=== PATIENT | male | born 1955 | race African-American/Black ===

== ENCOUNTER → 2022-10-15 09:43 | Outpatient (BNVA) | payer MEDICARE, SELFPAY | PROVIDERS: PCP Hospitalist; Visit Provider Urology | DX: N52.01 Erectile dysfunction due to arterial insufficiency (principal) | CPT/HCPCS: 99202 ==

== ENCOUNTER 2023-09-01 09:38 | Outpatient (AMB) | payer MEDICARE, SELFPAY ==
--- NOTE | 2023-09-01 09:38 | MHC.OFFVIS ---
Intake Intake Visit Reasons: medication follow up Intake Note: Guille is a 67 year old male who presents today for a Medication followup Allergies No Known Allergies Allergy (Verified 10/15/22 09:59) HPI HPI Comments History of Present Illness Details Guille is a pleasant male. He is a patient of Dr. Alford. He is seen for the following urologic conditions - erectile dysfunction Telemedicine Evaluation 15 min Consultation [employer] Has been on sildenafil on demand Erectile Dysfunction He presents today for - follow-up evaluation of erectile dysfunction Symptoms have been present for/since - progressive and ongoing Current treatment includes - none Treatment side effects include - none prior Prior therapies include - none At the time of initial evaluation he experiences - partial and adequate for vaginal penetration - undergo slow detumescence after penetration Nocturnal erections are occasional Associated Medical Conditions include hypertension, dyslipidemia, cardiovascular disease Atherosclerosis Cardiovascular Disease Risk not completed but moderate has prior cardiac stent from 2007 - has adequate performance status with ability to climb 2-3 flights of stairs and walk 200 yd Medications include(s) beta-maulik Recent labs include not complete Overall he is interested in oral medication Therapeutic plan includes - continue use of oral PDE5 [facility] Medical History Hyperlipidemia Erectile dysfunction Low back pain Microscopic hematuria Review of Systems Const All systems reviewed & are unremarkable except as noted in HPI and below Reports no additional complaints Resp Reports no additional complaints GI Reports no additional complaints Reports as per HPI Musc Reports no additional complaints Physical Exam Telemedicine evaluation Appropriate responses Regular breathing rate and rhythm HEENT Head: Yes normal to inspection Ears: hearing grossly normal bilaterally Eyes General: appearance normal, both eyes and all related structures Neck Neck: Yes normal visual inspection Chest Chest palpation & inspection: normal inspection of the chest Resp Effort & Inspection: normal respiratory effort and able to speak in complete sentences Assessment & Plan Assessment & Plan (1) Erectile dysfunction due to arterial insufficiency: Code(s): N52.01 - Erectile dysfunction due to arterial insufficiency Plan 12m f/u Patient Instructions: Imaging studies, laboratory and physical exam results were discussed and reviewed in detail. No major barriers to patient understanding were identified. An opportunity to ask questions regarding the treatment plan was provided. All questions were answered. The patient expressed understanding and agreement with the above treatment plan. The patient is aware they should contact our office by phone for worsening of their current condition or the appearance of new urologic symptoms. Compliance is encouraged with any medications and followup testing that is ordered. It is a privilege to participate in the urologic care of your patient. If you have any questions or concerns regarding treatment for the above conditions, or other urologic issues, please do not hesitate to contact me. The office telephone contact is [phone]. This note is constructed using voice recognition software. While every effort has been made to ensure accuracy fiber optics engineer errors may have been included. Yours sincerely, Dr Hemal Mckeon MD, DAVID [facility] - Urology Providers of Expert, Compassionate Care for the Genitourinary System Telehealth Telehealth Location of provider rendering services: practice address Location of patient: address on file Patient Identification confirmed using: Name, : Yes Telehealth method: video Patient verbally consented to treatment: Yes Patient verbally consented to billing insurance company: Yes Patient informed of any privacy concerns related to visit: Yes Coding Level of Care Code Tele Est Pt Level 3 (35908) Diagnoses Erectile dysfunction due to arterial insufficiency N52.01
== END 2023-09-01 10:17 | disposition home or self-care (01) ==
LOC: HO.HUSH 09:38
PROVIDERS: PCP Hospitalist; Visit Provider Urology
DX: N52.01 Erectile dysfunction due to arterial insufficiency (principal)
CPT/HCPCS: 99213

== ENCOUNTER → 2023-09-01 09:38 | Outpatient (BNVA) | payer MEDICARE, SELFPAY | PROVIDERS: PCP Hospitalist; Visit Provider Urology ==

== ENCOUNTER 2024-10-31 08:43 | Outpatient (AMB) | payer MEDICARE, SELFPAY ==
--- NOTE | 2024-10-31 08:48 | A.OFFVIS_ITS ---
Intake Visit Reasons: 1y follow up(Erectile Dys) Intake Note: New patient is present for 1Y F/U Erectile Dysfunction URO MEDS: SILDENAFIL ALLERGIES:NONE Blood Thinner: Warfarin Plate Roller Required: No Allergies No Known Allergies Allergy (Verified 10/31/24 08:49) HPI Comments Details: Guille is a pleasant male. He is a patient of Dr. Alford. He is seen for the following urologic conditions - erectile dysfunction Has been on sildenafil on demand Has been effective when required PCP tracts PSA Erectile Dysfunction He presents today for - follow-up evaluation of erectile dysfunction Symptoms have been present for/since - progressive and ongoing Current treatment includes - none Treatment side effects include - none prior Prior therapies include - none At the time of initial evaluation he experiences - partial and adequate for vaginal penetration - undergo slow detumescence after penetration Nocturnal erections are occasional Associated Medical Conditions include hypertension, dyslipidemia, cardiovascular disease Atherosclerosis Cardiovascular Disease Risk not completed but moderate has prior cardiac stent from 2007 - has adequate performance status with ability to climb 2-3 flights of stairs and walk 200 yd Medications include(s) beta-maulik Recent labs include not complete Overall he is interested in oral medication Therapeutic plan includes - continue use of oral PDE5 PFS Medical History Hyperlipidemia Erectile dysfunction Low back pain Microscopic hematuria Review of Systems Const Denies chills and Denies fever(s) Card Reports no additional complaints and Denies syncope Resp Denies cough GI Denies abdominal pain and Denies heartburn Reports as per HPI and Denies change in libido Neuro Denies syncope Psych Denies change in libido Endo Denies change in libido Physical Exam Const General: cooperative, healthy appearing, comfortable and no acute distress Orientation/consciousness: patient oriented x3 HEENT Face and sinus: Yes normal facial exam Mouth: moist mucous membranes Neck Neck: Yes normal visual inspection, Yes full ROM and Yes trachea midline Chest Chest palpation & inspection: normal inspection of the chest Resp Effort & Inspection: normal respiratory effort, able to speak in complete sentences and no respiratory distress GI Inspection: Yes normal to inspection Back/Spine/Pelvis Cervical Spine: normal cervical lordosis Thoracic/Lumbar Spine: thoracic and lumbar spine normal to inspection Skin General skin exam: no rashes or lesions noted Neuro General: patient oriented x3, gait normal, tone normal and moves all extremities Extrem General: Yes normal to inspection and Yes capillary refill normal Assessment & Plan Assessment & Plan (1) Erectile dysfunction due to arterial insufficiency: Code(s): N52.01 - Erectile dysfunction due to arterial insufficiency Category: Medical Plan Twelve month follow-up office Patient Instructions: Imaging studies, laboratory and physical exam results were discussed and reviewed in detail. No major barriers to patient understanding were identified. An opportunity to ask questions regarding the treatment plan was provided. All q uestions were answered. The patient expressed understanding and agreement with the above treatment plan. The patient is aware they should contact our office by phone for worsening of their current condition or the appearance of new urologic symptoms. Compliance is encouraged with any medications and followup testing that is ordered. It is a privilege to participate in the urologic care of your patient. If you have any questions or concerns regarding treatment for the above conditions, or other urologic issues, please do not hesitate to contact me. The office telephone contact is [phone]. This note is constructed using voice recognition software. While every effort has been made to ensure accuracy laborer tin can errors may have been included. Yours sincerely, Dr Hemal Mckeon MD, DAVID [facility] - Urology Providers of Expert, Compassionate Care for the Genitourinary System Coding Level of Care Code Est Pt Level 4 (78948) Diagnoses Erectile dysfunction due to arterial insufficiency N52.01
== END 2024-10-31 09:22 | disposition home or self-care (01) ==
PROVIDERS: PCP Hospitalist; Visit Provider Urology
DX: N52.01 Erectile dysfunction due to arterial insufficiency (principal)
CPT/HCPCS: 99214

== ENCOUNTER → 2024-10-31 08:43 | Outpatient (BNVA) | payer MEDICARE, SELFPAY | PROVIDERS: PCP Hospitalist; Visit Provider Urology | DX: N52.01 Erectile dysfunction due to arterial insufficiency (principal) | CPT/HCPCS: 99212 ==

== ENCOUNTER 2025-02-07 12:57 | Outpatient (AMB) | payer MEDICARE, SELFPAY ==
--- NOTE | 2025-02-07 13:21 | A.OFFVIS_ITS ---
Intake Visit Reasons: elevated psa Intake Note: Patient is present for ELEVATED PSA Urology Medication:SILDENAFIL Antibiotic Allergy:NONE Blood Thinner:WARFARIN Commercial Portfolio Manager Required: No Allergies No Known Allergies Allergy (Verified 02/07/25 13:22) HPI Comments Details: Guille is a pleasant male. He is a patient of Dr. Alford. He is seen for the following urologic conditions - erectile dysfunction Elevated PSA Follow-up after PCP tract PSA at 8.3 ALLIE in office 2+ Recommend trial finasteride and through repeat PSA in 4 months If PSA follows to normalize would recommend biopsy Erectile Dysfunction He presents today for - follow-up evaluation of erectile dysfunction Symptoms have been present for/since - progressive and ongoing Current treatment includes - none Treatment side effects include - none prior Prior therapies include - none At the time of initial evaluation he experiences - partial and adequate for vaginal penetration - undergo slow detumescence after penetration Nocturnal erections are occasional Associated Medical Conditions include hypertension, dyslipidemia, cardi ovascular disease Atherosclerosis Cardiovascular Disease Risk not completed but moderate has prior cardiac stent from 2007 - has adequate performance status with ability to climb 2-3 flights of stairs and walk 200 yd Medications include(s) beta-maulik Recent labs include not complete Overall he is interested in oral medication Therapeutic plan includes - continue use of oral PDE5 PFS Medical History Hyperlipidemia Erectile dysfunction Low back pain Microscopic hematuria Review of Systems Const Denies chills and Denies fever(s) Card Reports no additional complaints and Denies syncope Resp Denies cough GI Denies abdominal pain and Denies heartburn Reports as per HPI and Denies change in libido Neuro Denies syncope Psych Denies change in libido Endo Denies change in libido Physical Exam Const General: cooperative, healthy appearing, comfortable and no acute distress Orientation/consciousness: patient oriented x3 HEENT Face and sinus: Yes normal facial exam Mouth: moist mucous membranes Neck Neck: Yes normal visual inspection, Yes full ROM and Yes trachea midline Chest Chest palpation & inspection: normal inspection of the chest Resp Effort & Inspection: normal respiratory effort, able to speak in complete sentences and no respiratory distress GI Inspection: Yes normal to inspection Rectal Exam - Male: Yes normal sphincter tone and Yes prostate normal Male General Exam: Yes normal external exam Penis: normal penis and circumcised Meatus: meatus normal Scrotum: scrotum normal Testes: Testes normal Back/Spine/Pelvis Cervical Spine: normal cervical lordosis Thoracic/Lumbar Spine: thoracic and lumbar spine normal to inspection Skin General skin exam: no rashes or lesions noted Neuro General: patient oriented x3, gait normal, tone normal and moves all extremities Extrem General: Yes normal to inspection and Yes capillary refill normal Assessment & Plan Assessment & Plan (1) Elevated PSA: Code(s): R97.20 - Elevated prostate specific antigen [PSA] Category: Medical (2) Bladder outlet obstruction: Code(s): N32.0 - Bladder-neck obstruction Category: Medical Plan Start finasteride Follow-up PSA 4 month Orders: Orders PSA,Total (Free>4and<10) 4 Months N32.0 - Bladder-neck obstruction Medications: New finasteride 5 mg PO DAILY 90 days 90 tabs 1RF N32.0 - Bladder-neck obstruction Patient Instructions: This note is constructed using voice recognition software. While every effort has been made to ensure accuracy top bottom attaching machine operator errors may have been included. Imaging studies, laboratory and physical exam results were discussed and reviewed in detail. No major barriers to patient understanding were identified. An opportunity to ask questions regarding the treatment plan was provided. All questions were answered. The patient expressed understanding and agreement with the above treatment plan. The patient is aware they should contact our office by phone for worsening of their current condition or the appearance of new urologic symptoms. Compliance is encouraged with any medications and followup testing that is ordered. It is a privilege to participate in the urologic care of your patient. If you have any questions or concerns regarding treatment for the above conditions, or other urologic issues, please do not hesitate to contact me. The office telephone contact is [phone]. Sincerely, Dr Hemal Mckeon MD, DAVID [facility] - Urology Compassionate Specialist Care for the Genitourinary System Coding Level of Care Code Est Pt Level 4 (99286) Diagnoses Elevated PSA R97.20 Bladder outlet obstruction N32.0
--- OUTSIDE RECORDS SUMMARY | 2025-02-07 14:13 | XMS_ITS | Encounter Summary ---
Author Organization [facility] Address [address] [place] [address] Care Team Providers Care Director Of Materials Management Name Role Phone Karen Alford MD Primary Care Provider [phone] Encounter Details Date Type Department Care Team (Late Contact Info) Description 02/06/2025 10:35 AM EDT Ancillary Procedure [facility] [address] [facility] [address] [place] [address] Arrived Social History Tobacco Use Types Packs/Day Years Used Date Smoking Tobacco: Former Cigarettes Q uit: 09/10/2006 Smokeless Tobacco: Never Alcohol Use Standard Drinks/Week Comments No 0 (1 standard drink = 0.6 oz pur e alcohol) Sex and Gender Information Value Date Recorded Sex Assigned at Not on file Legal Sex Male 8:36 PM EST Gender Identity Not on file Sexual Orientation Not on file documented as of this encounter Plan of Treatment Upcoming Encounters Date Type Department Care Team (Late Contact Info) Description 02/08/2025 4:30 PM EDT Ancillary Procedure [facility] [address] [facility] [address] [place] [address] 03/20/2025 2:30 PM EDT Consult [facility] [address] [facility] [address] [place] [address] Calos Miller MD [address] [place] [address] 07/26/2025 10:40 AM EDT Office Visit [facility] [address] [place] [phone] Debbi Wahl, DWAINE [address] [place] [address] documented as of this encounter Procedures Procedure Name Priority Date/Time Associated Diagnosis Comments CARDIAC DEVICE CHECK- REMOTE- MURJ Routine 02/06/2025 10:31 AM EDT documented in this encounter Results * Cardiac device check - Remote- MURJ (02/06/2025 10:31 AM EDT) Date Time Interrogation Session [id number] CV DEVICE CHECK Type Interrogation Session Remote Scheduled CV DEVICE CHECK Implantable Pulse Generator Us Marketing Director [place] CV DEVICE CHECK Implantable Pulse Generator Type ICD CV DEVICE CHECK Implantable Pulse Generator Model [id number] RedMica Assura(TM) VR CV DEVICE CHECK Implantable Pulse Generator Serial Number [id number] CV DEVICE CHECK Implantable Pulse Generator Implant Date 20161116 CV DEVICE CHECK Battery Remaining Percentage 26.00 CV DEVICE CHECK Battery Remaining Longevity 29.0 CV DEVICE CHECK Battery Voltage 2.930 CV D EVICE CHECK Battery ORTHOPEDICS PEDIATRIC PHYSICIAN Trigger 2.590 CV DEVICE CHECK Battery Status Middle of Service CV DEVICE CHECK Capacitor Charge Time 9.800 CV DEVICE CHECK Tyler Statistic RV Percent Paced 1.00 CV DEVICE CHECK Lead Channel Sensing Intrinsic Amplitude 12.000 CV DEVICE CHECK Lead Channel Setting Sensing Sensitivity 0.30 CV DEVICE CHECK Lead Channel Impedance Value 650 CV DEVICE CHECK Lead Channel Setting Pacing Amplitude 2.000 CV DEVICE CHECK Lead Channel Setting Pacing Pulse Width 0.5 CV DEVICE CHECK Tyler Setting Mode (NBG Code) VVI CV DEVICE CHECK Tyler Setting Lower Rate Limit 40 CV DEVICE CHECK Tyler Setting Maximum Sensor Rate 110 CV DEVICE CHECK Therapy Statistic Recent Shocks Delivered 0 CV DEVICE CHECK Therapy Statistic Recent Shocks Aborted 1 CV DEVICE CHECK Therapy Statistic Recent ATP Delivered 1 CV DEVICE CHECK Shock Measured Impedance 60 CV DEVICE CHECK Zone Setting Type Category VT CV DEVICE CHECK Rate 171 CV DEVICE CHECK Zone Setting Status On CV DEVICE CHECK Zone ID 1 CV DEVICE CHECK Zone Setting Type Category VT CV DEVICE CHECK Zone Setting Status Inactive CV DEVICE CHECK Zone ID 2 CV DEVICE CHECK Zone Setting Type Category VF CV DEVICE CHECK Rate 200 CV DEVICE CHECK Therapies 30.0J,40.0J,40.0J x 4 CV DEVICE CHECK Zone Setting Status On CV DEVICE CHECK Zone ID 3 CV DEVICE CHECK Date of Service 2025-02-03 CV DEVICE CHECK Anatomical Region Laterality Modality Device Interroga tion 02/03/2025 2:00 AM EDT Impressions 02/06/2025 10:12 AM EDT Inappropriate Therapy: Lead Noise * Stored EGMs are consistent with or suggestive of inappropriate therapy delivered due to Lead Noise * Total episodes: 1 * ATP therapy: 1 * Shock(s) delivered: 0 Heart Failure Diagnostic: Stable * Heart failure diagnostics assessed through the device * Status: Stable * No overt HF present Narrative Procedure Note Maura Bell PA - 02/06/2025 IMPRESSION: Inappropriate Therapy: Lead Noise * Stored EGMs are consistent with or suggestive of inappropriate therapydelivered due to Lead Noise * Total episodes: 1 * ATP therapy: 1 * Shock(s) delivered: 0 Heart Failure Diagnostic: Stable * Heart failure diagnostics assessed through the device * Status: Stable * No overt HF present Maura DAS CV IMPLANTABLE CARDIAC DEVICE AK OCEDURES Final Result documented in this encounter Visit Diagnoses Not on filedocumented in this encounter Care Teams Director Of Materials Management Relationship Specialty Start Date End Date Karen Alford MD [address] [place] [phone] PCP - General Internal Medicine 11/17/18 documented as of this encounter
--- OUTSIDE RECORDS SUMMARY | 2025-02-07 14:13 | XMS_ITS | Encounter Summary ---
Author Organization [facility] Address [address] [place] [address] Care Team Providers Care Counter Pocket Sewer Name Role Phone Karen Alford MD Primary Care Provider [phone] Encounter Details Date Type Department Care Team (Late st Contact Info) Description 02/06/2025 Telephone [facility] [address] [facility] [address] [place] [phone] Maura Bell PA [address] [place] [address] Social History Tobacco Use Types Packs/Day Years [...] on file documented as of this encounter Progress Notes * PIPPA Sánchez - 02/06/2025 11:55 AM EDT He is coming this week for device changes - see murj 02/06 and OV with CHANTELLE to discuss lead revision in March All taken care of * Gina Manriquez MA - 02/06/2025 11:44 AM EDT Please clarify... Am I bringing him in for programming changes? Or are we bringing him in for Lead Extraction discussion? * PIPPA Sánchez - 02/06/2025 9:57 AM EDT See MURJ encounter titled Ancillary Procedure, report may be found under media, dated: Inappropriate ATP for RV lead noise- ATP given while device charging which was aborted, call to pt was raking and using leaf blower hx of RV noise. Device reviewed with Dr. Miller recommend pushing out VF interval of detection to 30 interval -will schedule office visit to discuss options for lead revision battery longevity 20% Patient has a history of ischemic cardiomyopathy original device placed in 2007- February 24, 2011 RV lead fracture old lead was capped, RV Durata lead was placed, March 03, 2011 RV lead revision, November 2016 generator change with successful DFT testing documented in this encounter Plan of Treatment Upcoming Encounters Date Type Department Care Team (Late st Contact Info) Description 02/08/2025 4:30 PM EDT Ancillary Procedure [facility] [address] [place] [address] 03/20/2025 2:30 PM EDT Consult [facility] [address] [place] [address] Calos Miller MD [address] [place] [address] 07/26/2025 10:40 AM EDT Office Visit [facility] [address] [place] [address] Debbi Wahl NP [address] [place] [address] documented as of this encounter Visit Diagnoses Not on filedocumented in this encounter Care Teams Counter Pocket Sewer Relationship Specialty Start Date End Date Karen Alford MD [address] [place] [address] PCP - General Internal Medicine 11/17/18 documented as of this encounter
--- OUTSIDE RECORDS SUMMARY | 2025-02-07 14:13 | XMS_ITS ---
Author Organization [facility] Address [address] [facility] [address] [place] [address] Care Team Providers Care Paster Hat Lining Name Role Phone CAT DUONG Primary Care Provider [phone] Jose Ryder Unavailable [phone] REASON FOR VISIT METHOCARBAMOL PA Denial Medications Medication SIG (Take, Route, Fr equency, Duration) Notes Start Date End Date Status tiZANidine HCl 4 MG 1 tablet at bedtime as needed Orally Once a day for 30 days 01/25/2025 Ac tive Encounters Encounter Location Date Provider Diagnosis [facility] [address] [address] 01/23/2025 Jose Ryder Muscle spasm of back M62.830 Assessments Encounter Date Diagnosis (ICD Code) Assessment Notes Treatment Notes Treatment Clinical Notes Section Notes 01/23/2025 Muscle spasm of back (ICD-10 - M62.830) Plan Of Treatment Medication Medication Name Sig Start Date Stop Date Notes tiZANidine HCl 4 MG 1 tablet at bedtime as needed Orally Once a day for 30 days 01/25/2025 Next Appt Details Provider Name:CAT DUONG , 06/12/2025 03:00:00 PM, [address] [address], [place], [address], Progress Notes * Guille MATAMOR[birth year]DOB:[birth year] (69 yo M)Acc No.[id number]:01/23/2025 Patient:Guille RUIZ :1955???Age:69 Y???Sex:Male Address:[address] [place] [address] * Refills? Start tiZANidine HCl Tablet, 4 MG, Orally, 30, 1 tablet at bedtime as needed, Once a day, 30 days, Refills=1 Subjective: * Chief Complaints: * ???METHOCARBAMOL PA Denial * Medical History:? * Surgical History:? * Hospitalization/Major Diagno stic Procedure:? * Medications:? Objective: * Vitals:? * Physical Examination:? Assessment: * Assessment: 1.?Muscle spasm of back - M6 2.830 (Primary)??? Plan: * Treatment: * Procedure Codes:? * true * Date:? Generated for Lobo edwards/Marcella/Lopezitting on:?02/07/2025 02:12 PM EDT
--- OUTSIDE RECORDS SUMMARY | 2025-02-07 14:13 | XMS_ITS ---
Author Organization [facility] Address [address] [facility] [address] [place] [address] Care Team Providers Care Assistant Store Manager Sales Name Role Phone CAT DUONG Primary Care Provider REASON FOR VISIT [facility] Auth Encounters Encounter Location Date Provider Diagnosis [facility] [address] [facility] [address] [place] [address] 02/06/2025 CAT DUONG Plan Of Treatment Next Appt Details Provider Name:CAT DUONG , 06/12/2025 03:00:00 PM, [address] [facility] [address], [place], [address], Progress Notes * KADEN GuilleDOB:[birth year] (69 yo M)Acc No.[id number]:02/06/2025 Patient:?Guille ALFONSO :1955???Age:69 Y???Sex:Male Address:[address] [place] [address] * true * Date:? Generated for Printi ng/Faxing/eTransmitting on:?02/07/2025 02:13 PM EDT
--- OUTSIDE RECORDS SUMMARY | 2025-02-07 14:13 | XMS_ITS ---
Author Organization [facility] Address [address] [facility] [address] [place] [address] Care Team Providers Care Shrimp Pond Laborer Name Role Phone CAT DUONG Primary Care Provider REASON FOR VISIT INR Inquiry Encounters Encounter Location Date Provider Diagnosis [facility] [address] [facility] [address] [place] [address] 01/24/2025 CAT DUONG Plan Of Treatment Next Appt Details Provider Name:CAT DUONG , 06/12/2025 03:00:00 PM, [address] [facility] [address], [place], [phone], Progress Notes * KADENGuilleDOB:[birth year] (69 yo M)Acc No.[id number]:01/24/2025 Patient:?Guille ALFONSO :1955???Age:69 Y???Sex:Male Address:[address] [place] [phone] * true * Date:? Generated for Printi ng/Faxing/eTransmitting on:?02/07/2025 02:12 PM EDT
--- OUTSIDE RECORDS SUMMARY | 2025-02-07 14:13 | XMS_ITS | Clinical Summary ---
Author Organization [address] [place] [address] [place] [phone] Phone Care Team Providers Care Doctor Of Nurse Anesthesia Practice Name Role Phone PrashanthIldadyllan Del Cid MD Primary Care Provider [phone] Allergies Active Allergy Reactions Criticality Noted Date Comments Shrimp Swelling 01/27/2019 orbital Medications lisinopriL (PRINIVIL,ZESTR IL) 30 mg tablet Take 30 mg by mouth daily. Active warfarin (COUMADIN) 1 mg tablet 4 Tablets daily. 11/14/2018 Active atorvastatin (LIPITOR) 80 mg tablet Take 1 tablet (80 mg total) by mouth 1 (one) time each day. 11/14/2014 Active aspirin 81 mg EC tablet Take 1 tablet (81 mg total) by mouth 1 (one) time each day. 10/15/2014 Active metoprolol tartrate (LOPRESSOR) 100 mg tablet Take 1 & 1/2 tabs by mouth twice a day 05/24/2014 Active nitroglycerin (NITROSTAT) 0.4 mg SL tablet one tab under the tongue as needed for chest pain, may repeat x2 spaced 5 minutes apart 02/20/2014 Active Active Problems Problem Noted Date Diagnosed Date Chronic systolic heart failure (CMS/HCC V24, CMS /HCC V28) 07/13/2022 Ischemic cardiomyopathy 07/13/2022 AICD (automatic cardioverter/defibrillator) pres ent 01/27/2019 Renal infarct (CMS/HCC V24) 01/27/2019 Overview (09/22/2024): On chronic anticoagulation Iritis, recurrent 07/09/2010 Erectile dysfunction 09/24/2009 Cardiomyopathy ([facility] V24, [facility] V28) 2007 Overview (09/22/2024): EF 30-35% HTN (hypertension) 01/31/2008 CAD (coronary artery disease) 12/28/2006 Overview (09/22/2024): 09/24/06 old [place]; Stent; angioplasty Hyperlipidemia 12/28/2006 LV (left ventricular) mural thrombus 05/21/2006 Overview (09/22/2024): 10/2018 On anticoagulation Encounters Date Type Department Care Team Description 02/06/2025 10:35 AM EDT Ancillary Procedure [facility] Cardiology [facility] - [address] [place] [address] Arrived 02/06/2025 Telephone [facility] Cardiology [facility] - [address] [place] [address] Maura Bell PA 01/30/2025 5:25 PM EDT Ancillary Procedure [facility] - [address] [place] [address] 01/12/2025 4:55 PM EDT Ancillary Procedure [facility] - [address] [place] [address] 12/18/2024 2:00 PM EDT Office Visit [facility] Cardiology [facility] - [address] [place] [address] Doc Rice MD Coronary artery disease, unspecified vessel or lesion type, unspecified whether angina present, unspecified whether [place] or transplanted heart (Primary Dx); Ischemic cardiomyopathy; LV (left ventricular) mural thrombus; Renal infarct ([facility] V24) 12/18/2024 1:00 PM EDT Ancillary Procedure [facility] - [address] [place] [address] Encounter for adjustment or management of cardiac device 12/15/2024 4:15 PM EST Ancillary Procedure [facility] Cardiology [facility] - [address] [place] [address] 12/12/2024 11:35 AM EST Ancillary Procedure [facility] - [address] [place] [address] 12/12/2024 Telephone [facility] - [address] [place] [address] Maura Bell PA 12/07/2024 9:55 AM EST Ancillary Procedure [facility] - [address] [place] [address] 12/06/2024 Telephone [facility] - [address] [place] [address] Elin Joe MA Follow up on symptoms from device alert 12/05/2024 11:45 AM EST Ancillary Procedure [facility] - [address] [place] [address] 12/05/2024 Telephone [facility] - [address] [place] [address] Calos Miller MD Device Remote AI from Last 3 Months Immunizations Name Administration Dates Next Due H1N1 Inj Preservative Free 11/06/2009 Influenza trivalent, 0.5mL, preservative free (Fluarix; FluLaval; Fluzone) ages 6mo and older (Afluria) 3 years and older 07/13/2014,07/25/2010,11/06/2009,2007,10/25/2007 Td, Unspecified 04/15/2002 Tdap Tetanus diptheria acell ular pertussis (Boostrix; Adacel) 7yo and older 11/07/2010 Surgical History Surgery Date Site/Laterality Comments COLONOSCOPY 03/21/2008 PROCEDURE: WI COLONOSCOPY FLX DX W/COLLJ SPEC WHEN PFRMD; COMMENT: negative examination OTHER SURGICAL HISTORY 01/19/2008 PROCEDURE: AICD, DUAL CHAMBER; COMMENT: ([facility]) by Dr. Dennis and Dr. Felix. OTHER SURGICAL HISTORY 03/2010 PROCEDURE: [place] REPAIR PRIMARY OPEN/PRQ RUPTURED ACHILLES TENDON; COMMENT: right Achilles tear 03/09/10. Dr. Anton Medical History Medical History Date Comments Iritis, recurrent 07/09/2010 DX:Iritis, rec urrent CAD (coronary artery disease) 12/28/2006 DX :CAD (coronary artery disease); COMMENT: 09/24/06 old [place]; Stent; angioplasty Hyperlipidemia 12/28/2006 DX:Hyperlipidemi a Cardiomyopathy ([facility]/HCC V24, [facility]/HCC V28) 01/31/2008 DX:Cardiomyopathy (HCC); COM MENT: EF 30-35% HTN (hypertension) 01/31/2008 DX:HTN (hyper tension) AICD (automatic cardioverter/defibrillator) present 01/27/2019 DX:AICD (automatic cardioverter/defibrillator) present LV (left ventricular) mural thrombus 05/21/2006 DX:LV (left ventricular) mural thrombus; COMMENT: 10/2018 On anticoagulation Erectile dysfunction 09/24/2009 DX:Erectile dysfunction Renal infarct ([facility] V24) 01/27/2019 DX:R enal infarct ([facility]); COMMENT: On chronic anticoagulation Family History Medical History Relation Name Comments Blindness Neg Hx Cataracts Neg Hx Glaucoma Neg Hx Macular degeneration Neg Hx Strabismus Neg Hx Relation Name Status Comments Brother 1 Alive x5, one with CA D, one with diabetes Brother 2 in [facility] y Brother 3 unknown, a s a baby Father (Age 20's) unknown, ?aneurysm brain Mother Alive diabetes, HTN Social History Tobacco Use Types Packs/Day Years [...] on file Sexual Orientation Not on file Obstetrics History Last Filed Vital Signs Vital Sign Reading Time Taken Comments Blood Pressure 110/66 12/18/2024 2:26 PM EDT Pulse 53 12/18/2024 2:26 PM EDT Temperature - - Respiratory Rate - - Oxygen Saturation 97% 12/18/2024 2:26 PM EDT Inhaled Oxygen Concentration - - Weight 94.8 kg (209 lb) 12/18/2024 2:26 PM EDT Height 190.5 cm (6' 3 ) 12/18/2024 2:26 PM EDT Body Mass Index 26.12 12/18/2024 2:26 PM EDT Plan of Treatment Upcoming Encounters Date Type Department Care Team (Late st Contact Info) Description 02/08/2025 4:30 PM EDT Ancillary Procedure [facility] Cardiology [facility] - [address] [place] [address] 03/20/2025 2:30 PM EDT Consult [facility] Cardiology [facility] - [address] [place] [address] Calos Miller MD [address] [place] [address] 07/26/2025 10:40 AM EDT Office Visit [facility] Cardiology [facility] - [address] [place] [address] Debbi Wahl NP [address] [place] [address] Health Maintenance Due Date Last Done Comments Pneumococcal Vaccine: 50+ Years (1 of 2 - PCV) 1976 Zoster Vaccines (1 of 2) 2007 RSV Immunization Adult Patients (1 - Risk 60-74 years 1-dose series) 2017 Abdominal Aortic Aneurysm (AAA) Screen 09/20/2022 Cholesterol Screening (Lipid Panel) 09/20/2022 06/23/2014 Depression Screening 09/20/2022 Hypertension/CHF/CAD Annual BMP Blood Test 09/20/2022 06/23/2014 Medicare Annual Wellness Visit 09/20/2022 Social Influencers of Health Screening 09/20/2022 Falls Risk Assessment 2022 COVID-19 Vaccine ( season) 2024 03/06/2021, 02/13/2021 Influenza Vaccine (Season Ended) 2025 07/13/2014, 07/25/2010, 11/06/2009, Additional history exists Colorectal Cancer Screening: Colonoscopy 03/22/2029 03/22/2019 DTaP,Tdap,and Td Vaccines (4 - Td or Tdap) 01/20/2033 01/20/2023, 11/07/2010, 04/15/2002 Hepatitis C Screening Completed 07/25/2013 HIB Vaccines Aged Out No longer eligi ble based on patient's age to complete this topic HPV Vaccines Aged Out No longer eligi ble based on patient's age to complete this topic Hepatitis A Vaccines Aged Out No long er eligible based on patient's age to complete this topic Hepatitis B Vaccines Aged Out No long er eligible based on patient's age to complete this topic IPV Vaccines Aged Out No longer eligi ble based on patient's age to complete this topic MMR Vaccines Aged Out No longer eligi ble based on patient's age to complete this topic Meningococcal ACWY Vaccine Aged Out N o longer eligible based on patient's age to complete this topic Meningococcal B Vaccine Aged Out No l onger eligible based on patient's age to complete this topic RSV Immunization Patients Under 20 months Aged Out No longer eligible based on patient's age to complete this topic Varicella Vaccines Aged Out No longer eligible based on patient's age to complete this topic Medical Devices Implanted Type Area Marker Machine Attendant Device Identifier Shelf Expiration Date Model / Serial / Lot Abbt-Stju 1357-40c Fortify Assura(Tm) Vr [id number] Implanted:03/2017 (Quantity not on file) Cardiac ICD [facility] 1357-40C FORTIFY ASSURA(TM) VR / [id number] / Abbt-Stju Fortify Assura Vr 1357-40c [id number] Implanted:03/2017 (Quantity not on file) Cardiac ICD [facility] FORTIFY ASSURA VR 1357-40C / [id number] / Procedures Procedure Name Priority Date/Time Associated Diagnosis Comments CARDIAC DEVICE CHECK- REMOTE- MURJ Routine 02/06/2025 10:31 AM EDT CARDIAC DEVICE CHECK- REMOTE- MURJ Routine 01/30/2025 5:21 PM EDT CARDIAC DEVICE CHECK- REMOTE- MURJ Routine 01/12/2025 4:52 PM EDT CARDIAC DEVICE CHECK- IN CLINIC- MURJ Routine 12/18/2024 2:41 PM EDT Encounter for adjustment or management of cardiac device ECG 12-LEAD Routine 12/18/2024 2:23 PM EDT Coronary artery disease, unspecified vessel or lesion type, unspecified whether angina present, unspecified whether [place] or transplanted heart CARDIAC DEVICE CHECK- REMOTE- MURJ Routine 12/15/2024 4:10 PM EST CARDIAC DEVICE CHECK- REMOTE- MURJ Routine 12/12/2024 11:31 AM EST CARDIAC DEVICE CHECK- REMOTE- MURJ Routine 12/07/2024 9:54 AM EST CARDIAC DEVICE CHECK- REMOTE- MURJ Routine 12/05/2024 11:40 AM EST COLONOSCOPY Routine 03/22/2019 ANNUAL BMP BLOOD TEST Routine 06/23/2014 LIPID PANEL Routine 06/23/2014 HEPATITIS C SCREENING Routine 07/25/2013 from Last 3 Months or Most Recently Relevant to Health Maintenance Results * Cardiac device check - Remote- MURJ (02/06/2025 10:31 AM EDT) Only the most recent of7 resultswithin the time period is included. Date Time Interrogation Session [id number] CV DEVICE CHECK Type Interrogation Session Remote Scheduled CV DEVICE CHECK Implantable Pulse Generator Marker Machine Attendant [facility] CV DEVICE CHECK Implantable Pulse Generator Type ICD CV DEVICE CHECK Implantable Pulse Generator Model 1357-40C Fortify Assura(TM) VR CV DEVICE CHECK Implantable Pulse Generator Serial Number [id number] CV DEVICE CHECK Implantable Pulse Generator Implant Date 20161116 CV DEVICE CHECK Battery Remaining Percentage 26.00 CV DEVICE CHECK Battery Remaining Longevity 29.0 CV DEVICE CHECK Battery Voltage 2.930 CV D EVICE CHECK Battery MAMMOGRAPHER Trigger 2.590 CV DEVICE CHECK Battery Status [...] Status: Stable * No overt HF present us Maura DAS CV IMPLANTABLE CARDIAC DEVICE WI OCEDURES Final Result * CARDIAC DEVICE CHECK- IN CLINIC- [facility] (12/18/2024 2:41 PM EDT) Date Time Interrogation Session [id number] CV DEVICE CHECK Implantable Pulse Generator Marker Machine Attendant [facility] CV DEVICE CHECK Implantable Pulse Generator Type ICD CV DEVICE CHECK Implantable Pulse Generator Model [email or web address] VR 1357-40C CV DEVICE CHECK Implantable Pulse Generator Serial Number [id number] CV DEVICE CHECK Implantable Pulse Generator Implant Date 20161116 CV DEVICE CHECK Tyler Statistic RV Percent Paced 0.04 CV DEVICE CHECK Lead Channel Sensing Intrinsic Amplitude 12.000 CV DEVICE CHECK Lead Channel Setting Sensing Sensitivity 0.30 CV DEVICE CHECK Lead Channel Impedance Value 613 CV DEVICE CHECK Lead Channel Pacing Threshold Amplitude 0.500 CV DEVICE CHECK Lead Channel RV Pacing Threshold Date 2024-12-18 CV DEVICE CHECK Lead Channel Setting Pacing Amplitude 2.000 CV DEVICE CHECK Lead Channel Setting Pacing Pulse Width 0.5 CV DEVICE CHECK Tyler Setting Mode (NBG Code) VVI CV DEVICE CHECK Tyler Setting Lower Rate Limit 40 CV DEVICE CHECK Tyler Setting Maximum Sensor Rate 110 CV DEVICE CHECK Zone Setting Type Category VF CV DEVICE CHECK Rate 200 CV DEVICE CHECK Therapies ATP While Charging, 30J, 40J, 40J CV DEVICE CHECK Zone Setting Status On CV DEVICE CHECK Zone ID 1 CV DEVICE CHECK Zone Setting Type Category VT-1 CV DEVICE CHECK Rate 171 CV DEVICE CHECK Zone Setting Status On CV DEVICE CHECK Zone ID 2 CV DEVICE CHECK Date of Service 2025-01-21 CV DEVICE CHECK Anatomical Region Laterality Modality Device Interroga tion 12/18/2024 Impressions 12/25/2024 9:22 AM EDT Noise * Patient brought into clinic to assess RV lead noise and Non-sustained V Oversensing episodes. * Noise was not reproducible with provocative maneuvers, however it was reproduced when the patient coughed. * Turned off Secure Sense at the suggestion of [facility] rep Pete Vasquez. * Auto sense remains on, as it is not a programable feature in this device. * Ventricular noise reversion turned to Low today to obtain EMGs of events. * Continue to monitor Heart Failure Diagnostic: Stable * Heart failure diagnostics assessed through the device * Status: Stable * No overt HF present Narrative Procedure Note Calos Miller MD - 12/25/2024 IMPRESSION: Noise * Patient brought into clinic to assess RV lead noise and Non-sustained VOversensing episodes. * Noise was not reproducible with provocative maneuvers, however it wasreproduced when the patient coughed. * Turned off Secure Sense at the suggestion of [facility] rep Pete Vasquez. * Auto sense remains on, as it is not a programable feature in thisdevice. * Ventricular noise reversion turned to Low today to obtain EMGs ofevents. * Continue to monitor Heart Failure Diagnostic: Stable * Heart failure diagnostics assessed through the device * Status: Stable * No overt HF present us Order Referral Cardiovascular CV IMPLANTABLE CAR DIAC DEVICE PROCEDURES Final Result * ECG 12 lead (12/18/2024 2:23 PM EDT) Ventricular Rate ECG 53 BPM GEMUSE Atrial Rate 53 BPM GEMUSE P-R Interval 182 ms GEMUSE QRS Duration 98 ms GEMUSE Q-T Interval 434 ms GEMUSE QTc 407 ms GEMUSE P Wave Stanton 70 degrees GEMUSE R Stanton 29 degrees GEMUSE T Stanton 100 degrees GEMUSE ECG Interpretation Sinus bradycardia Left ventricular hypertrophy with repolarization abnormality Cannot rule out Septal infarct (cited on or before 19-JUL-2017) Cannot rule out Inferior infarct (cited on or before 19-JUL-2017) Abnormal ECG When compared with ECG of 19-JUL-2017 16:23, No change from office ECG from about one year ago Confirmed by Lamar RICE, DOC ([id number]) on 12/18/2024 3:43:48 PM GEMUSE 12/18/2024 2:23 PM EDT 12/18/2024 3:43 PM EDT Doc Rice MD ECG ORDERABLES Final Result GEMUSE * Colonoscopy (03/22/2019) Pathologist [facility] Colonoscopy no interpretation , abstracted Anatomical Region Laterality Modality Other Historical Provider HEALTH MAINTENANCE Final Result * Annual BMP Blood Test (06/23/2014) Pathologist [facility] Annual BMP Blood Test abstracted [facility] Provider HEALTH MAINTENANCE Final Result * Lipid panel (06/23/2014) [facility] LDL/HDL Ratio 2 0 - 4 Triglycerides 41 0 - 150 mg/dL Cholesterol 127 0 - 200 mg/dL HDL 54 >=40 mg/dL LDL Cholesterol 65 0 - 100 mg/dL Blood Venous blood specimen / Unknown Historical Provider LAB BLOOD ORDERABLES Ruth Ann l Result * Hepatitis C Screening (07/25/2013) Pathologist [facility] Hepatitis C Screening abstracted Historical Provider HEALTH MAINTENANCE Final Result from Last 3 Months or Most Recently Relevant to Health Maintenance Insurance [employer] Care Teams Doctor Of Nurse Anesthesia Practice Relationship Specialty Start Date End Date Karen Alford MD [address] [place] [phone] PCP - General Internal Medicine 11/17/18
--- OUTSIDE RECORDS SUMMARY | 2025-02-07 14:13 | XMS_ITS | Patient Health Record ---
Author Organization [employer] Address [address] [place] [address] Care Team Providers Care Media Consultant Outside Sales Name Role Phone CAT DUONG Primary Care Provider Jose Ryder Unavailable [phone] Allergies No Known Allergies Results Component Value Reference Range Notes Prothrombin Time (PT)-[id number] Reviewed date:01/02/2025 10:04:00 AM Interpretation: Performing Lab:[facility], [address] [place] [address], Phone - [phone], Director - Daysi Notes/Report: INR 2.0 0.9-1.1 Prothrombin Time 20.2 9.2-11.4 SEC Prothrombin Time (PT)-[id number] Reviewed date:06/22/2024 03:46:57 PM Interpretation: Performing Lab:[facility], [address] [place] [address], Phone - [phone], Director - Rosangela Notes/Report: INR 2.3 0.9-1.2 Reference interval is for non-anticoagulated patients. . Suggested INR therapeutic range for Vitamin K antagonist therapy: Standard Dose (moderate intensity therapeutic range): 2.0 - 3.0 Higher intensity therapeutic range 2.5 - 3.5 Prothrombin Time 23.2 9.1-12.0 sec Prothrombin Time (PT)-[id number] Reviewed date:01/30/2025 10:10:42 AM Interpretation: Performing Lab:[facility], [address] [place] [address], Phone - [phone], Director - Daysi Notes/Report: Clinical Information:STANDING ORDER 1 YEAR INR 4.0 0.9-1.1 Prothrombin Time 36.6 9.2-11.4 SEC Prothrombin Time (PT)-[id number] Reviewed date:02/01/2025 01:53:16 PM Interpretation: Performing Lab:[facility], [address] [place] [address], Phone - [phone], - Daysi Notes/Report: INR 3.0 0.9-1.1 Prothrombin Time 28.2 9.2-11.4 SEC Prothrombin Time (PT)-444781 Reviewed date:04/27/2024 11:45:29 AM Interpretation: Performing Lab:[facility], [address] [place] [address], Phone - [phone], Director Killian Tavarez Notes/Report: INR 1.8 0.9-1.1 Prothrombin Time 18.8 9.2-11.4 SEC Prothrombin Time (PT)-809412 Reviewed date:10/30/2024 09:36:05 AM Interpretation: Performing Lab:[facility], [address] [place] [address], Phone - [phone], - Daysi Notes/Report: Clinical Information:STANDING ORDER INR 2.6 0.9-1.1 Prothrombin Time 24.6 9.2-11.4 SEC Hemoglobin D3d-[id number] Reviewed date:07/16/2024 07:24:47 AM Interpretation: Performing Lab:[facility], Phone - [phone], Director - Rosangela Notes/Report: Hemoglobin A1c 6.4 4.8-5.6 % . Prediabetes: 5.7 - 6.4 Diabetes: >6.4 Glycemic control for adults with diabetes: <7.0 Prothrombin Time (PT)-778435 Reviewed date:06/18/2024 10:26:17 AM Interpretation: Performing Lab:[facility], [address] [place] [address], Phone - [phone], - Daysi Notes/Report: INR 2.1 0.9-1.1 Prothrombin Time 21.4 9.2-11.4 SEC Prothrombin Time (PT)-292335 Reviewed date:05/19/2024 11:36:19 AM Interpretation: Performing Lab:[facility], [address] [place] [address], Phone - [phone], Director - Rosangela Notes/Report: INR 2.7 0.9-1.2 Reference interval is for non-anticoagulated patients. . Suggested INR therapeutic range for Vitamin K antagonist therapy: Standard Dose (moderate intensity therapeutic range): 2.0 - 3.0 Higher intensity therapeutic range 2.5 - 3.5 Prothrombin Time 27.7 9.1-12.0 sec Prothrombin Time (PT)-825053 Reviewed date:05/10/2024 09:20:40 AM Interpretation: Performing Lab:[facility], [address] [place] [address], Phone - [phone], Director - [facility] Notes/Report: INR 2.1 0.9-1.1 Prothrombin Time 20.9 9.2-11.4 SEC PSA (Serial Monitor)-[id number] Reviewed date:12/27/2024 04:39:59 PM Interpretation: Performing Lab:[facility], [address] [place] [address], Phone - [phone], Director - Rosangela Notes/Report: Prostate Specific Ag 8.3 0.0-4.0 ng/mL Michi ECLIA methodology. . According to the [employer], Serum PSA should decrease and remain at undetectable levels after radical prostatectomy. The AUA defines biochemical recurrence as an initial PSA value 0.2 ng/mL or greater followed by a subsequent confirmatory PSA value 0.2 ng/mL or greater. Values obtained with different assay methods or kits cannot be used interchangeably. Results cannot be interpreted as absolute evidence of the presence or absence of malignant disease. Prothrombin Time (PT)-570586 Reviewed date:08/10/2024 09:32:34 AM Interpretation: Performing Lab:[facility], [address] [place] [address], Phone - [phone], Director - Joalie Notes/Report: INR 3.2 0.9-1.2 Reference interval is for non-anticoagulated patients. . Suggested INR therapeutic range for Vitamin K antagonist therapy: Standard Dose (moderate intensity therapeutic range): 2.0 - 3.0 Higher intensity therapeutic range 2.5 - 3.5 Prothrombin Time 31.9 9.1-12.0 sec Prothrombin Time (PT)-008109 Reviewed date:08/23/2024 02:42:03 PM Interpretation: Performing Lab:[facility], [address] [place] [address], Phone - [phone], Director - MDMoore Notes/Report: INR 1.8 0.9-1.1 Prothrombin Time 18.8 9.2-11.4 SEC Prothrombin Time (PT)-575617 Reviewed date:02/06/2025 01:57:24 PM Interpretation: Performing Lab:[facility], [address] [place] [address], Phone - [phone], Director - MDMoore Notes/Report: INR 1.3 0.9-1.1 Prothrombin Time 13.3 9.2-11.4 SEC Prothrombin Time (PT)-[id number] Reviewed date:02/21/2024 05:08:03 PM Interpretation: Performing Lab:[facility], [address] [place] [address], Phone - [phone], Director - MDMashleye Notes/Report: INR 2.5 0.9-1.1 Prothrombin Time 24.7 9.2-11.4 SEC Prothrombin Time (PT)-[id number] Reviewed date:03/22/2024 01:56:52 PM Interpretation: Performing Lab:[facility], [address] [place] [address], Phone - [phone], Director - MDMashleye Notes/Report: INR 3.0 0.9-1.1 Prothrombin Time 29.7 9.2-11.4 SEC Prothrombin Time (PT)-515578 Reviewed date:03/23/2024 09:43:07 AM Interpretation: Performing Lab:[facility], [address] [place] [address], Phone - [phone], Director - MDMoore Notes/Report: INR 2.8 0.9-1.1 Prothrombin Time 27.8 9.2-11.4 SEC Prothrombin Time (PT)-752701 Reviewed date:07/14/2024 04:46:08 PM Interpretation: Performing Lab:[facility], [address] [place] [address], Phone - [phone], Director - MDMashleye Notes/Report: INR 3.3 0.9-1.1 Prothrombin Time 31.9 9.2-11.4 SEC Prothrombin Time (PT)-[id number] Reviewed date:10/05/2024 01:56:23 PM Interpretation: Performing Lab:[facility], [address] [place] [address], Phone - [phone], Director - Daysi Notes/Report: INR 2.4 0.9-1.1 Prothrombin Time 23.6 9.2-11.4 SEC Prothrombin Time (PT)-[id number] Reviewed date:07/25/2024 01:34:07 PM Interpretation: Performing Lab:[facility], [address] [place] [address], Phone - [phone], Director - Daysi Notes/Report: INR 2.1 0.9-1.1 Prothrombin Time 20.9 9.2-11.4 SEC Prothrombin Time (PT)-857153 Reviewed date:12/04/2024 04:17:12 PM Interpretation: Performing Lab:[facility], [address] [place] [address], Phone - [phone], Director - Daysi Notes/Report: INR 3.0 0.9-1.1 Prothrombin Time 28.3 9.2-11.4 SEC Prothrombin Time (PT)-[id number] Reviewed date:08/31/2024 09:49:57 AM Interpretation: Performing Lab:[facility], [address] [place] [address], Phone - [phone], Director - Daysi Notes/Report: INR 2.7 0.9-1.1 Prothrombin Time 26.5 9.2-11.4 SEC Comp. Metabolic Panel (14)-3 58294 Reviewed date:06/22/2024 04:04:27 PM Interpretation: Performing Lab:[facility], [address] [place] [address], Phone - [phone], Director - Rosangela Notes/Report: Glucose 100 70-99 mg/dL BUN 12 8-27 mg/dL Creatinine 1.11 0.76-1.27 mg/dL eGFR 73 >59 mL/min/1.73 BUN/Creatinine Ratio 11 10-24 Sodium 141 134-144 mmol/L Potassium 4.7 3.5-5.2 mmol/L Chloride 105 96-106 mmol/L Carbon Dioxide, Total 24 20-29 mmol/L Calcium 9.0 8.6-10.2 mg/dL Protein, Total 6.6 6.0-8.5 g/dL Albumin 4.1 3.9-4.9 g/dL Globulin, Total 2.5 1.5-4.5 g/dL Bilirubin, Total 0.4 0.0-1.2 mg/dL Alkaline Phosphatase 117 44-121 IU/L AST (SGOT) 24 0-40 IU/L ALT (SGPT) 26 0-44 IU/L Albumin/Creatinine Ratio,Uri ne-[id number] Reviewed date:06/21/2024 06:29:41 PM Interpretation: Performing Lab:[facility], [address] [place] [address], Phone - [phone], Director - Fanny Notes/Report: Creatinine, Urine TNP Test not p erformed. No urine specimen received. Albumin, Urine TNP Test not perf ormed Lipid Panel-[id number] Reviewed date:06/21/2024 06:29:36 PM Interpretation: Performing Lab:[facility], [address] [place] [address], Phone - [phone], Director - Rosangela Notes/Report: Cholesterol, Total 127 100-199 mg/dL Triglycerides 56 0-149 mg/dL HDL Cholesterol 41 >39 mg/dL VLDL Cholesterol Annette 12 5-40 mg/dL LDL Chol Calc (NIH) 74 0-99 mg/dL PSA (Serial Monitor)-[id number] Reviewed date:06/21/2024 06:29:28 PM Interpretation: Performing Lab:[facility], [address] [place] [address], Phone - [phone], Director - Rosangela Notes/Report: Prostate Specific Ag 6.2 0.0-4.0 ng/mL Michi ECLIA methodology. . According to the [employer], Serum PSA should decrease and remain at undetectable levels after radical prostatectomy. The AUA defines biochemical recurrence as an initial PSA value 0.2 ng/mL or greater followed by a subsequent confirmatory PSA value 0.2 ng/mL or greater. Values obtained with different assay methods or kits cannot be used interchangeably. Results cannot be interpreted as absolute evidence of the presence or absence of malignant disease. Request Problem TNP TEST: [id number] Albumin/Creatinine Ratio,Urine Test not performed. No urine specimen received. Prothrombin Time (PT)-310792 Reviewed date:11/30/2024 03:33:09 PM Interpretation: Performing Lab:[facility], [address] [place] [address], Phone - [phone], Director - [facility] Notes/Report: INR 4.3 0.9-1.1 Prothrombin Time 38.7 9.2-11.4 SEC Reason For Referral Reason Please evaluate and treat Diagnosis 1 Elevated prostate sp ecific antigen [PSA] (R97.20) Referral Organization [facility] Referring Provider First Name CAT Referring Provider Last Name [facility] Referring Provider Speciality Internal edicine Referred Provider Specialty Urology General Notes Faxed to [facility]. Please contact patient to schedule., Gavi Snider 06/20/2024 02:48:19 PM > Referral Priority Routine Reason Elevated PSA Pleas e evaluate and treat Diagnosis 1 Elevated prostate sp ecific antigen [PSA] (R97.20) Referral Organization [facility] Referring Provider First Name SHELTON Referring Provider Last Name [facility] Referring Provider Speciality Internal edicine Referred Provider Specialty Urology General Notes Referral was faxed [facility]. Please contact patient for scheduling., Carrie Florez 12/27/2024 04:32:14 PM > Referral Priority Routine Medications Medication SIG (Take, Route, Frequency, Duration) Notes Start Date End Date Status Acetaminophen ER 650 MG 1 tablets as nee ded Orally every 8 hrs for 7 days 01/08/2023 Not-Taking Diclofenac Sodium 1 % 1 APPLICATION EXTE RNALLY TWICE A DAY 30 DAYS for 30 Not-Taking Nitroglycerin 0.4 MG DISSOLVE 1 TAB UNDE R TONGUE EVERY 5 MIN UP TO 3 DOSES IN 15 MIN IF NO RELIEF, CALL 911 DIRECTED for 90 Active Shingrix 50 MCG/0.5ML as directed Intramuscular 1 for 30 days 06/28/2020 Not-Taking Pneumovax 23 25 MCG/0.5ML as directed Injection 1 for 30 days 06/28/2020 Not-Taking Warfarin Sodium 4 MG 1 tablet Orally Onc e a day for 30 days Active Prevnar 20 0.5 ML as directed Intramuscular 1 for 365 days 03/30/2022 Not-Taking tiZANidine HCl 4 MG 1 tablet at bedtime as needed Orally Once a day for 30 days 01/25/2025 Active Shingrix 50 MCG/0.5ML as directed Intramuscular 1 for 365 days 03/30/2022 Not-Taking Warfarin Sodium 1 MG TAKE [address] [facility] EVERY DAY Orally Once a day for 90 days Not-Taking Viagra Not-Taking Aspirin Adult Low Strength 81 mg 1 tablet Orally Once a day for 90 Active Atorvastatin Calcium 80 MG TAKE 1 TABLET ONCE DAILY for 90 Active Metoprolol Tartrate 100 MG TAKE 1.5 TABLETS BY MOUTH TWO TIMES A DAY FOR for 90 Active Methocarbamol 750 MG 1 tablet Orally benjamin ry 8 hours for 30 days Active Lisinopril 30 MG TAKE 1 TABLET BY JOHANNA TH EVERY DAY for 90 Active Benzonatate 100 MG 1 capsule as needed Orally Three times a day for 21 days 10/12/2024 Not-Taking Warfarin Sodium 3 MG TAKE 1 TO 2 TABLETS BY MOUTH ONCE A DAY FOR 90 DAYS. for 90 days Not-Taking Immunizations Vaccine Route Administration Date Status Comme nts COVID 19 Pfizer Unknown 02/13/2021 Administered COVID 19 Pfizer Unknown 03/06/2021 Administered Tdap Unknown 11/07/2010 Administered Social History Tobacco Use: Social History Observation Description Date Details (start date - stop date) Never Smoker NA - NA Tobacco Use/Smoking Question Answer Notes Are you a nonsmoker Alcohol Screen (Audit-C) Question Answer Notes Did you have a drink containing alcohol in the p ast year? No Points 0 Interpretation Negative Problems Problem Type SNOMED Code ICD Code Onset Dates Problem Status W/U Status Risk Notes Problem Tinea pedis (2795419) Tinea pedis (B35.3) Active confirmed Problem Essential hypertension (90431476) Essential (primary) hypertension (I10) Active confirmed Problem Chronic systolic heart failure (085542099) Chronic systolic (congestive) heart failure (I50.22) Active confirmed Problem Erectile dysfunction (disorder) (528564018) Male erectile dysfunction, unspecified (N52.9) Active confirmed Problem Hematuria (63414182) Hematuria, unspecified (R31.9) Active confirmed Problem Adult health examination (033520220) Encounter for general adult medical examination without abnormal findings (Z00.00) Active confirmed Problem Long-term current use of anticoagulant (271136811) laboratory aide (current) use of anticoagulants (Z79.01) Active confirmed Problem Automatic implantable cardiac defibrillator in situ (373546845) Presence of automatic (implantable) cardiac defibrillator (Z95.810) Active confirmed Problem Hyperlipidemia (67771544) Hyperlipidemia, unspecified (E78.5) Active confirmed Problem [id number] 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) Active confirmed Problem Atherosclerotic heart disease of [place] coronary artery without angina pectoris (141562841779523) Coronary artery disease involving [place] coronary artery of [place] heart without angina pectoris (I25.10) Active confirmed Vital Signs Heart Rate 63 /min 01/23/2025 Temperature 97.3 degrees Fahrenheit 01/23/2025 Oximetry 96 % 01/23/2025 Blood pressure diastolic 72 mm Hg 01/23/2025 Height 75.39 in 01/23/2025 Blood pressure systolic 120 mm Hg 01/23/2025 Weight 212.9 lbs 01/23/2025 BMI 26.33 kg/m2 01/23/2025 Encounters Encounter Location Date Provider Diagnosis [facility] [address] [place] [address] 03/02/2024 [facility] [address] [place] [address] 03/20/2024 [facility] [address] [place] [address] 04/21/2024 [facility] [address] [place] [address] 04/24/2024 [facility] [address] [place] [address] 04/27/[address] [place] [address] 04/27/[address] [place] [address] 04/27/2024 [facility] Coronary artery dise ase involving [place] coronary artery of [place] heart without angina pectoris I25.10 [facility] [address] [place] [address] 04/27/2024 [facility] [address] [place] [address] 04/27/2024 [facility] [address] [place] [address] 05/04/2024 [place] [facility] [address] [place] [address] 05/10/2024 CAT DUONG Coronary artery dise ase involving [place] coronary artery of [place] heart without angina pectoris I25.10 [facility] [address] [place] [address] 05/17/2024 [facility] [address] [place] [address] 05/23/2024 [facility] [address] [place] [address] 06/16/2024 [place] [facility] Left ventricular api annette thrombus I51.3 [facility] [address] [place] [address] 06/20/2024 [facility] [address] [place] [address] 06/22/2024 SHELTONMELISSA PERES Impaired fasting glucose R73.01 [facility] [address] [place] [address] 07/21/2024 [facility] [address] [place] [address] 08/07/2024 [facility] [address] [place] [address] 08/10/2024 [place] [facility] [address] [place] [address] 08/21/2024 [place] [facility] [address] [place] [address] 08/30/2024 [facility] [address] [place] [address] 09/28/2024 [place] [facility] [address] [place] [address] 10/12/2024 [facility] [address] [place] [address] 10/13/2024 Jose Ryder [facility] [address] [place] [address] 10/27/2024 [facility] laboratory aide (current) use of anticoagulants Z79.01 [facility] [address] [place] [address] 12/27/2024 [facility] [address] [place] [address] 12/29/2024 [facility] laboratory aide (current) use of anticoagulants Z79.01 [facility] [address] [place] [address] 12/29/2024 [facility] [address] [place] [address] 01/10/2025 [facility] [address] [place] [address] 01/18/2025 [facility] [address] [place] [address] 01/23/2025 Jose Ryder Muscle spasm of back M62.830 [facility] [address] [place] [address] 01/24/2025 [facility] [address] [place] [address] 02/06/2025 [facility] [address] [place] [address] 05/23/2024 [facility] Encounter for genera l adult medical examination without abnormal findings Z00.00 ; Essential (primary) hypertension I10 ; Hyperlipidemia, unspecified E78.5 ; Chronic systolic (congestive) heart failure I50.22 and Left ventricular apical thrombus I51.3 [facility] [address] [place] [address] 11/23/2024 Jose Ryder [facility] [address] [place] [address] 12/26/2024 CAT DUONG Essential (primary) hypertension I10 ; Hyperlipidemia, unspecified E78.5 ; Chronic systolic (congestive) heart failure I50.22 ; Left ventricular apical thrombus I51.3 ; Coronary artery disease involving [place] coronary artery of [place] heart without angina pectoris I25.10 and Elevated prostate specific antigen [PSA] R97.20 [facility] [address] [place] [address] 10/12/2024 Jose Ryder Viral URI J06.[address] [place] [address] 01/23/2025 Jose Srjoshjuan carlos Lumbar back pain M54 .50 Assessments Encounter Date Diagnosis (ICD Code) Assessment Notes Treatment Notes Treatment Clinical Notes Section Notes 04/27/2024 Coronary artery disease involving [place] coronary artery of [place] heart without angina pectoris (ICD-10 - I25.10) 05/10/2024 Coronary artery disease involving [place] coronary artery of [place] heart without angina pectoris (ICD-10 - I25.10) 06/16/2024 Left ventricular apical thrombus (ICD-10 - I51.3) 06/22/2024 Impaired fasting glucose (ICD-10 - R73.01) 10/12/2024 Viral URI (ICD-10 - J06.9) Mr. Alfonso is a 68-year-old gentleman with coronary artery disease, CHF with systolic dysfunction and EF of 30-35% status post ICD, hypertension, hyperlipidemia, LV thrombus currently on Warfarin here for coughing. Plan as follows Viral URI - Symptoms are more consistent with a viral upper respiratory infection. Lungs are clear to auscultation, ears are unremarkable, no facial tenderness, no lymphadenopathy, No signs of pharyngitis. Most likely viral. I have advised patient on testing for COVID. I have started patient on benzonatate for cough. He can also use normal saline for nasal congestion. I have also informed patient on increasing hydration. I have rendered the services for this patient under direct supervision of Dr. Duong, who did not see the patient but was available upon request 10/27/2024 laboratory aide (current) use of anticoagulants (ICD-10 - Z79.01) 12/26/2024 Essential (primary) hypertension (ICD-10 - I10) Guille a 69 years old pleasant gentleman with CHF, hypertension,, left ventricle apical thrombus, CAD, elevated PSA and erectile dysfunction is here today for follow-up. Plan is as follows Hypertension/hyper lipidemia. Controlled on current regimen on metoprolol 100 mg twice and take 1.5 tablet 2 times a day, lisinopril 30 mg daily. Hyperlipidemia. Continue atorvastatin 80 mg daily Left ventricular apical thrombus. Currently on warfarin and we follow up on PT/INR. Congestive heart failure. He is stable and he does not appear to be in volume overload. He is on beta blockers and statins along with lisinopril. He follows up with mangle tender on a regular basis. Elevated PSA. We will repeat PSA and based on that we will do further treatment and evaluation. 12/29/2024 detention (current) use of anticoagulants (ICD-10 - Z79.01) 01/23/2025 Lumbar back pain (ICD-10 - M54.50) Mr. Alfonso is a 69-year-old gentleman with coronary artery disease, CHF with systolic dysfunction and EF of 30-35% status post ICD, hypertension, hyperlipidemia, LV thrombus currently on Warfarin here for lower back pain. Plan as follows: Lumbar back pain: - Started 3 days ago. No trauma. No red flag sxs. Negative CVA. SLR test is 80 degrees BL with no concern. No paraspinal tenderness. Admits to left lower back pain on extension, relieved with flexion. DDx: spinal stenosis, degenerative changes, ligament strain. I have started patient on methocarbamol, he can also take Tylenol as needed for pain. We will get an x-ray of the lumbar and SI joint. I did discuss physical therapy and orthopedic is not interested at this point. I have rendered the services for this patient under direct supervision of Dr. Duong, who did not see the patient but was available upon request 01/23/2025 Muscle spasm of back (ICD-10 - M62.830) 05/23/2024 Encounter for general adult medical examination without abnormal findings (ICD-10 - Z00.00) Mr. Alfonso is a 68-year-old gentleman with coronary artery disease, CHF with systolic dysfunction and EF of 30-35% status post ICD, hypertension, hyperlipidemia, LV thrombus currently on Warfarin here for annual wellness visit. Plan is as follows: Hypertension with heart disease. Blood pressure well controlled on current regimen. Hyperlipidemia. Last lipid panel within normal limits. Continue Atorvastatin 80 MG at night. LV thrombus. He is currently on Warfarin. He goes to [facility]. CHF. S/p ICD placement which is monitored. He is clinically stable and he is not compensated heart failure. Last echocardiogram showed EF of 25%. He will be appropriate candidate for Entresto but he is not interested. Benefits and risks of the medication discussed with the patient. Advised daily weights and avoid sodium as much as possible. Eye screening. He sees his aircraft assembler regularly. Dental screening. He sees dentist regularly. Colon cancer screening. He had his colonoscopy done in 2019 and is on [id number]. Immunizations. He is up-to-date on his COVID and influenza vaccinations. General health concerns discussed with patient. Scribe services used to formulate this note under HIPAA compliance and under [place] law mandated for scribe services. Patient aware of service. Verbal consent and written consent taken from the patient. Patient understands and verbalizes understanding of the scribes services and all questions answered regarding scribes services. Patient agrees to use of scribes services. 05/23/2024 Essential (primary) hypertension (ICD-10 - I10) Mr. Alfonso is a 68-year-old gentleman with coronary artery disease, CHF with systolic dysfunction and EF of 30-35% status post ICD, hypertension, hyperlipidemia, LV thrombus currently on Warfarin here for annual wellness visit. Plan is as follows: Hypertension with heart disease. Blood pressure well controlled on current regimen. Hyperlipidemia. Last lipid panel within normal limits. Continue Atorvastatin 80 MG at night. LV thrombus. He is currently on Warfarin. He goes to [facility]. CHF. S/p ICD placement which is monitored. He is clinically stable and he is not compensated heart failure. Last echocardiogram showed EF of 25%. He will be appropriate candidate for Entresto but he is not interested. Benefits and risks of the medication discussed with the patient. Advised daily weights and avoid sodium as much as possible. Eye screening. He sees his aircraft assembler regularly. Dental screening. He sees dentist regularly. Colon cancer screening. He had his colonoscopy done in 2019 and is on [id number]. Immunizations. He is up-to-date on his COVID and influenza vaccinations. General health concerns discussed with patient. Scribe services used to formulate this note under HIPAA compliance and under [place] law mandated for scribe services. Patient aware of service. Verbal consent and written consent taken from the patient. Patient understands and verbalizes understanding of the scribes services and all questions answered regarding scribes services. Patient agrees to use of scribes services. 12/26/2024 Hyperlipidemia, unspecified (ICD-10 - E78.5) Guille a 69 years old pleasant gentleman with CHF, hypertension,, left ventricle apical thrombus, CAD, elevated PSA and erectile dysfunction is here today for follow-up. Plan is as follows Hypertension/hyper lipidemia. Controlled on current regimen on metoprolol 100 mg twice and take 1.5 tablet 2 times a day, lisinopril 30 mg daily. Hyperlipidemia. Continue atorvastatin 80 mg daily Left ventricular apical thrombus. Currently on warfarin and we follow up on PT/INR. Congestive heart failure. He is stable and he does not appear to be in volume overload. He is on beta blockers and statins along with lisinopril. He follows up with mangle tender on a regular basis. Elevated PSA. We will repeat PSA and based on that we will do further treatment and evaluation. 12/26/2024 Chronic systolic (congestive) heart failure (ICD-10 - I50.22) Guille a 69 years old pleasant gentleman with CHF, hypertension,, left ventricle apical thrombus, CAD, elevated PSA and erectile dysfunction is here today for follow-up. Plan is as follows Hypertension/hyper lipidemia. Controlled on current regimen on metoprolol 100 mg twice and take 1.5 tablet 2 times a day, lisinopril 30 mg daily. Hyperlipidemia. Continue atorvastatin 80 mg daily Left ventricular apical thrombus. Currently on warfarin and we follow up on PT/INR. Congestive heart failure. He is stable and he does not appear to be in volume overload. He is on beta blockers and statins along with lisinopril. He follows up with mangle tender on a regular basis. Elevated PSA. We will repeat PSA and based on that we will do further treatment and evaluation. 05/23/2024 Hyperlipidemia, unspecified (ICD-10 - E78.5) Mr. Alfonso is a 68-year-old gentleman with coronary artery disease, CHF with systolic dysfunction and EF of 30-35% status post ICD, hypertension, hyperlipidemia, LV thrombus currently on Warfarin here for annual wellness visit. Plan is as follows: Hypertension with heart disease. Blood pressure well controlled on current regimen. Hyperlipidemia. Last lipid panel within normal limits. Continue Atorvastatin 80 MG at night. LV thrombus. He is currently on Warfarin. He goes to [facility]. CHF. S/p ICD placement which is monitored. He is clinically stable and he is not compensated heart failure. Last echocardiogram showed EF of 25%. He will be appropriate candidate for Entresto but he is not interested. Benefits and risks of the medication discussed with the patient. Advised daily weights and avoid sodium as much as possible. Eye screening. He sees his aircraft assembler regularly. Dental screening. He sees dentist regularly. Colon cancer screening. He had his colonoscopy done in 2019 and is on [id number]. Immunizations. He is up-to-date on his COVID and influenza vaccinations. General health concerns discussed with patient. Scribe services used to formulate this note under HIPAA compliance and under [place] law mandated for scribe services. Patient aware of service. Verbal consent and written consent taken from the patient. Patient understands and verbalizes understanding of the scribes services and all questions answered regarding scribes services. Patient agrees to use of scribes services. 12/26/2024 Left ventricular apical thrombus (ICD-10 - I51.3) Guille a 69 years old pleasant gentleman with CHF, hypertension,, left ventricle apical thrombus, CAD, elevated PSA and erectile dysfunction is here today for follow-up. Plan is as follows Hypertension/hyper lipidemia. Controlled on current regimen on metoprolol 100 mg twice and take 1.5 tablet 2 times a day, lisinopril 30 mg daily. Hyperlipidemia. Continue atorvastatin 80 mg daily Left ventricular apical thrombus. Currently on warfarin and we follow up on PT/INR. Congestive heart failure. He is stable and he does not appear to be in volume overload. He is on beta blockers and statins along with lisinopril. He follows up with mangle tender on a regular basis. Elevated PSA. We will repeat PSA and based on that we will do further treatment and evaluation. 05/23/2024 Chronic systolic (congestive) heart failure (ICD-10 - I50.22) Mr. Alfonso is a 68-year-old gentleman with coronary artery disease, CHF with systolic dysfunction and EF of 30-35% status post ICD, hypertension, hyperlipidemia, LV thrombus currently on Warfarin here for annual wellness visit. Plan is as follows: Hypertension with heart disease. Blood pressure well controlled on current regimen. Hyperlipidemia. Last lipid panel within normal limits. Continue Atorvastatin 80 MG at night. LV thrombus. He is currently on Warfarin. He goes to [facility]. CHF. S/p ICD placement which is monitored. He is clinically stable and he is not compensated heart failure. Last echocardiogram showed EF of 25%. He will be appropriate candidate for Entresto but he is not interested. Benefits and risks of the medication discussed with the patient. Advised daily weights and avoid sodium as much as possible. Eye screening. He sees his aircraft assembler regularly. Dental screening. He sees dentist regularly. Colon cancer screening. He had his colonoscopy done in 2019 and is on [id number]. Immunizations. He is up-to-date on his COVID and influenza vaccinations. General health concerns discussed with patient. Scribe services used to formulate this note under HIPAA compliance and under [place] law mandated for scribe services. Patient aware of service. Verbal consent and written consent taken from the patient. Patient understands and verbalizes understanding of the scribes services and all questions answered regarding scribes services. Patient agrees to use of scribes services. 12/26/2024 Coronary artery disease involving [place] coronary artery of [place] heart without angina pectoris (ICD-10 - I25.10) Guille a 69 years old pleasant gentleman with CHF, hypertension,, left ventricle apical thrombus, CAD, elevated PSA and erectile dysfunction is here today for follow-up. Plan is as follows Hypertension/hyper lipidemia. Controlled on current regimen on metoprolol 100 mg twice and take 1.5 tablet 2 times a day, lisinopril 30 mg daily. Hyperlipidemia. Continue atorvastatin 80 mg daily Left ventricular apical thrombus. Currently on warfarin and we follow up on PT/INR. Congestive heart failure. He is stable and he does not appear to be in volume overload. He is on beta blockers and statins along with lisinopril. He follows up with mangle tender on a regular basis. Elevated PSA. We will repeat PSA and based on that we will do further treatment and evaluation. 05/23/2024 Left ventricular apical thrombus (ICD-10 - I51.3) Mr. Alfonso is a 68-year-old gentleman with coronary artery disease, CHF with systolic dysfunction and EF of 30-35% status post ICD, hypertension, hyperlipidemia, LV thrombus currently on Warfarin here for annual wellness visit. Plan is as follows: Hypertension with heart disease. Blood pressure well controlled on current regimen. Hyperlipidemia. Last lipid panel within normal limits. Continue Atorvastatin 80 MG at night. LV thrombus. He is currently on Warfarin. He goes to [facility]. CHF. S/p ICD placement which is monitored. He is clinically stable and he is not compensated heart failure. Last echocardiogram showed EF of 25%. He will be appropriate candidate for Entresto but he is not interested. Benefits and risks of the medication discussed with the patient. Advised daily weights and avoid sodium as much as possible. Eye screening. He sees his aircraft assembler regularly. Dental screening. He sees dentist regularly. Colon cancer screening. He had his colonoscopy done in 2019 and is on [id number]. Immunizations. He is up-to-date on his COVID and influenza vaccinations. General health concerns discussed with patient. Scribe services used to formulate this note under HIPAA compliance and under [place] law mandated for scribe services. Patient aware of service. Verbal consent and written consent taken from the patient. Patient understands and verbalizes understanding of the scribes services and all questions answered regarding scribes services. Patient agrees to use of scribes services. 12/26/2024 Elevated prostate specific antigen [PSA] (ICD-10 - R97.20) Guille a 69 years old pleasant gentleman with CHF, hypertension,, left ventricle apical thrombus, CAD, elevated PSA and erectile dysfunction is here today for follow-up. Plan is as follows Hypertension/hyper lipidemia. Controlled on current regimen on metoprolol 100 mg twice and take 1.5 tablet 2 times a day, lisinopril 30 mg daily. Hyperlipidemia. Continue atorvastatin 80 mg daily Left ventricular apical thrombus. Currently on warfarin and we follow up on PT/INR. Congestive heart failure. He is stable and he does not appear to be in volume overload. He is on beta blockers and statins along with lisinopril. He follows up with mangle tender on a regular basis. Elevated PSA. We will repeat PSA and based on that we will do further treatment and evaluation. Plan Of Treatment Pending Test Test Name Order Date Urine Cytology 02/14/2018 Urinalysis 02/10/2018 Prothrombin Time with INR (PT/INR) 06/01 Prothrombin Time with INR (PT/INR) 02/10 ALT (SGPT) 05/14/2023 AST (SGOT) 05/14/2023 PROTIME PROFILE 06/25/2020 PROTIME PROFILE 06/10/2022 PSA, SCREEN 03/30/2022 PT/INR 01/17/2019 PT/INR 01/11/2019 Xray: Spine/Lumbar Min 4 Vws 01/23/2025 Xray: Spine/Si Joints-Min 3 Vws 01/24/20 25 PT/INR 01/31/2019 Future Test Test Name Order Date Albumin/Creatinine Ratio,[id number] Lipid Panel-[id number] 12/26/2024 Comp. Metabolic Panel [id number] 2024 Next Appt Details Provider Name:CAT DUONG , 06/12/2025 03:00:00 PM, [address] [place] [address], [phone], Insurance Providers Payer Name Payer Address Payer Phone Subscriber Number Group Number Insured Name Patient Relationship to Insured Coverage Start Date Coverage End Date [employer] Preferred [address] [place] [phone] [id number] Guille Alfonso Self - patient is the insured 2 Medical (General) History Medical History History ICD Code hypertension, benign hyperlipidemia Coronary artery disease and status post stent in LAD 10 years ago Ischemic cardiomyopathy with EF of 30-35% and status post ICD followed Dr Noble LV thrombus and cardiac thro mbi with spreading to the kidneys and have renal infarcts currently on warfarin
== END 2025-02-07 13:36 | disposition home or self-care (01) ==
LOC: HO.HUSH 12:57
PROVIDERS: PCP Hospitalist; Visit Provider Urology
DX: R97.20 Elevated prostate specific antigen [PSA] (principal); N32.0 Bladder-neck obstruction
CPT/HCPCS: 99214

== ENCOUNTER → 2025-02-07 12:57 | Outpatient (BNVA) | payer MEDICARE, SELFPAY | PROVIDERS: PCP Hospitalist; Visit Provider Urology | DX: R97.20 Elevated prostate specific antigen [PSA] (principal); N32.0 Bladder-neck obstruction | CPT/HCPCS: 99212 ==